=== PATIENT | female | born 1980 | race Caucasian/White ===

== ENCOUNTER → 2022-02-02 | Outpatient (CLI) | payer BC ==
[2004-08-28 15:15] VITALS: PULSE 81; TEMP 97.5
== END ==
LOC: MC.RAD 07:51
DX: Z12.31 Encounter for screening mammogram for malignant neoplasm of breast (principal)

== ENCOUNTER → 2023-10-02 | Outpatient (CLI) | payer BC ==
[2004-08-28 15:15] VITALS: PULSE 81; TEMP 97.5
== END ==
LOC: MC.RAD 10:40
DX: Z12.31 Encounter for screening mammogram for malignant neoplasm of breast (principal)